=== PATIENT | female | born 1995 | race African-American/Black ===

== ENCOUNTER 2019-06-25 15:56 | Emergency (ER) | payer MEDICAID ==
[~2019-06-25] VITALS: Ht 170.2 cm; Wt 108.9 kg
[2019-06-25 16:24] VITALS: BP 151/80
--- NOTE | 2019-06-25 17:18 | PHYS DOC ---
Past Medical History Past Medical History: No Pertinent History Past Surgical History: No Surgical History Alcohol Use: None Drug Use: None Adult General Chief Complaint Chief Complaint: VAGINAL PROBLEM HPI HPI Patient is a 24 year old [female] who presents with [small amount of vaginal bleeding and . Patient reports her last menstrual cycle May 19, 2019, showing afterwards she had a home previously test with positive results. Reports she went out on May 26 had STD testing, as well as testing, reports she had from previously at that time as well, and also no reported findings of ST knee. Reports she is continued to be sexually active with her partner since this time, had intercourse 3 days ago with a small amount of blood at that time. Reports she put intercourse this morning as well, has noticed some blood on the paper this afternoon as well. Reports earlier this morning was very, saphenous has been darker brown. Denies any clots. Denies any pain. Denies any other concerns. Reports she just concerned over the bleeding. Reports is her first . Has been taking vitamins.] Review of Systems Review of Systems Constitutional: Denies fever or chills [] Eyes: Denies change in visual acuity, redness, or eye pain [] HENT: Denies nasal congestion or sore throat [] Respiratory: Denies cough or shortness of breath [] Cardiovascular: No additional information not addressed in HPI [] GI: Denies abdominal pain, nausea, vomiting, bloody stools or diarrhea [] : Denies dysuria or hematuria, denies blood in urine. Denies any blood clots. Reports she is onlya small amount of blood on the top ever after wiping on intercourse this morning. [] Musculoskeletal: Denies back pain or joint pain [] Integument: Denies rash or skin lesions [] Neurologic: Denies headache, focal weakness or sensory changes [] Endocrine: Denies polyuria or polydipsia [] All other systems were reviewed and found to be within normal limits, except as documented in this note. Allergies Allergies Allergies Coded Allergies Type Severity Reaction Last Updated Verified No Known Drug Allergies 06/25/19 No Physical Exam Physical Exam Constitutional: Well developed, well nourished, no acute distress, non-toxic appearance. [] HENT: Normocephalic, atraumatic, bilateral external ears normal, oropharynx moist, no oral exudates, nose normal. [] Eyes: PERRLA, EOMI, conjunctiva normal, no discharge. [] Neck: Normal range of motion, no tenderness, supple, no stridor. [] Cardiovascular:Heart rate regular rhythm, no murmur [] Lungs & Thorax: Bilateral breath sounds clear to auscultation [] Abdomen: Bowel sounds normal, soft, no tenderness, no masses, no pulsatile masses. [] Skin: Warm, dry, no erythema, no rash. [] Back: No tenderness, no CVA tenderness. [] Extremities: No tenderness, no cyanosis, no clubbing, ROM intact, no edema. [] Neurologic: Alert and oriented X 3, normal motor function, normal sensory function, no focal deficits noted. [] Psychologic: Affect normal, judgement normal, mood normal. [] Current Patient Data Vital Signs Vital Signs Date Time Temp Pulse Resp B/P (MAP) Pulse Ox O2 Delivery O2 Flow Rate FiO2 06/25/19 16:24 99.8 110 17 151/80 (103) 100 Room Air 99.8 Lab Values Laboratory Tests Test 06/25/19 16:27 POC Urine HCG, Qualitative Hcg positive (Negative) EKG EKG [] Radiology/Procedures Radiology/Procedures [] Course & Med Decision Making Course & Med Decision Making Pertinent Labs and Imaging studies reviewed. (See chart for details) [Pelvic Exam - Patient tolerated well, inspector structural bonding by NAVA Saez. No noted vaginal bleeding, no lesions or trauma noted. cervix closed. Discussed findings with patient, with bleeding noted repeated after intercourse. Patient does state she has not had as much pleasure with intercourse and has noted a little more discomfort with intercourse. Discussed use of lubrication for intercourse. Discussed importance of follow up with OBGYn, reports she sees Dr Pierson in June for her first OB visit. States she was just worried why she was bleeding. Patient does not want additional testing, reports she will follow up if any further bleeding.] Dragon Disclaimer Dragon Disclaimer This electronic medical record was generated, in whole or in part, using a voice recognition dictation system. Departure Departure Impression: Primary Impression: History of sexual intercourse Additional Impression: Disposition: HOME, SELF-CARE Condition: GOOD Referrals: NO PCP (PCP) Patient Instructions: Abnormal Uterine Bleeding Additional Instructions: Discussed findings with patient, with symptoms most likely related to intercourse and decreased lubrication. Make sure you are using lubrication if needed. Follow up with Dr Pierson in June as you have scheduled. Retu rn if you notice more bleeding Problem Qualifiers Additional Impression: Weeks of gestation: less than 8 weeks Qualified Codes: Z3A.01 - Less than 8 weeks gestation of SHEN AVILA APRN Jun 25, 2019 17:18
== END 2019-06-25 18:06 | disposition home or self-care (01) ==
LOC: ER 15:56
DX: O46.91 Antepartum hemorrhage, unspecified, first trimester (principal); Z3A.01 Less than 8 weeks gestation of pregnancy
CPT/HCPCS: 81025; 99283